=== PATIENT | female | born 1940 | race Caucasian/White ===

== ENCOUNTER 2024-03-08 09:24 | Day surgery (SDC) | payer MEDICARE, SELFPAY ==
[2024-03-07 09:42] VITALS: BMI 19.1
[2024-03-08 09:48] VITALS: BP 153/73; PULSE 65; RESP 16; TEMP 36.4; O2SAT 100
[2024-03-08] MEDS: LACTATED RINGERS 1000ML 1,000 ML 25 ML IV (09:55)
--- NOTE | 2024-03-08 10:07 | EXP.ANES.CKL ---
[facility] Disclaimer: The information contained in this section may have been updated after the patient was seen, as this information can be updated by other users. Medical History History of hypothyroidism Hypertension History of arthritis Dysphagia Surgical History History of esophagogastroduodenoscopy (EGD) Family History Other No significant family history Social History Smoking Status: Never smoker alcohol intake: never substance use type: denies use current occupational status: retired Travel in the last 8 weeks: None [facility] Anesthesia Checklist Patient Identification Patient Identification: Arm Band Structural Data Admitted From: Home Planned Operative Procedure/s: EGD Consent for Planned Operative Procedure(s) Verified: Yes Verified Documents: Surgical Consent and History and Physical NPO Status Verified Time NPO: 00:00 Additional verifications Anesthesia Reactions: No Airway Assessment Mallampati Score:: Class II C-Spine Mobility Assessed: Yes TMJ Mobility Assessed: Yes Dentition: Edentulous Neurological Assessment Level of Consciousness: Awake, Alert and Appropriate Anesthesia Plan Anesthesia Risk discussed: Yes Anesthesia Plan: Verified ASA Class: II Anesthesia Type: MAC
--- NOTE | 2024-03-08 10:29 | EXP.HP ---
History of Present Illness *Admission Date: 03/08/24 *Reason for visit:: Dysphagia *History of present illness: Mrs. Redd is an 83-year-old female who is here for recurrent dysphagia. She has had multiple esophageal dilations over the years. The examination is deemed medically necessary for EGD. The patient has been seen, interviewed and examined prior to the procedure by both myself and the anesthesia provider. [facility] Disclaimer: The information contained in this section may have been updated after the patient was seen, as this information can be updated by other users. Medical History History of hypothyroidism Hypertension History of arthritis Dysphagia Surgical History History of esophagogastroduodenoscopy (EGD) Family History Other No significant family history Social History (Updated 03/08/24 @ 10:08 by Ramsey Holland CRNA) Smoking Status: Never smoker alcohol intake: never substance use type: denies use current occupational status: retired Travel in the last 8 weeks: None Other Medical History Have you received the Pneumonia Vaccine: No Review of Systems Review of Systems Review of systems (narrative): Negative *Cardiovascular Comments: Negative *Gastrointestinal Comments: Negative *Genitourinary Comments: Negative *Musculoskeletal Comments: Negative *Neurologic Comments: Negative Meds Home Medications and Allergies Home Medications ?Medication ?Instructions ?Recorded ?Confirmed ?Type acetaminophen 500 mg tablet (Pain 500 mg PO Q6H PRN Pain 03/01/24 03/08/24 History Relief Extra Strength (acetaminophen)) levothyroxine 50 mcg tablet 50 mcg PO DAILY 03/01/24 03/08/24 History losartan 100 mg tablet 100 mg PO DAILY 03/01/24 03/08/24 History meclizine 12.5 mg tablet 12.5 mg PO TID PRN Nausea 03/01/24 03/08/24 History psyllium husk (with sugar) 3 1 tbsp PO DAILY PRN Constipation 03/01/24 03/08/24 History gram/12 gram oral powder (Konsyl (sugar)) New Prescriptions to Start Prescriptions: Allergies Allergy/AdvReac Type Severity Reaction Status Date / Time No Known Allergies Allergy Verified 03/08/24 09:47 Exam Data for Last 24 hours Vital signs and Labs for Last 24 Hours: Temp Pulse Resp BP Pulse Ox O2 Del Method 97.6 F 65 16 153/73 H 100 Room Air 03/08/24 09:48 03/08/24 09:48 03/08/24 09:48 03/08/24 09:48 03/08/24 09:48 03/08/24 09:48 I & O for Last 24 hours: Intake & Output 03/05/24 03/06/24 03/07/24 03/08/24 23:59 23:59 23:59 23:59 Weight 115 lb *Routine HEENT Exam Head: Present normocephalic Eye: Present EOMI and PERRL ENT: Present mucous membranes moist *Routine Neck Exam Neck: Present supple *Routine Respiratory Exam Respiratory: Present CTA bilaterally *Routine Cardiovascular Exam Cardiovascular: Present RRR *Routine Abdominal Exam Abdominal: Present soft and normoactive bowel sounds; Absent tenderness *Routine Rectal Exam Rectal:: deferred *Routine Genitalia Exam Genitalia:: deferred *Routine Extremities Exam Extremities: Absent cyanosis, clubbing or edema *Routine Skin Exam Skin: Present warm; Absent rash *Routine Neurological Exam Neurological: Present alert and oriented X3 Assessment and Plan *Assessment and plan (1) Dysphagia: Status: Acute Category: Medical Code(s): R13.10 - Dysphagia, unspecified Plan A/P: 1. Dysphagia is the preprocedural diagnosis. The patient will be anesthetized/sedated using MAC sedation. The patient has been seen and examined. Cardiac and lung assessment prior to the examination is stable. Proceed with planned EGD
[2024-03-08 10:34] VITALS: O2SAT 99
--- NOTE | 2024-03-08 10:42 | P.PCN_ITS ---
[facility] Procedure Note Date: 03/08/24 Procedure Note:: Upper Endoscopy Procedure Report: Esophagogastroduodenoscopy with cold biopsies and TTS balloon dilation Endoscopost: Geovanni Lao II, MD Referring Physician: Cesar Flowers MD Date of Procedure: March 08, 2024 Equipment: Olympus GIF 190 standard upper endoscope Sedation: MAC sedation Indications: Mrs. Redd is an 83-year-old female who is here for diagnostic/therapeutic upper endoscopy secondary to recurrent dysphagia. The patient has had 4-5 prior upper endoscopies with dilation. She recently has had an increase in her swallowing difficulty since October. She does state that breads and meats are getting hung up on a regular basis. The patient also has had some constipation. Procedure: Prior to the procedure, a history and physical exam was performed, and patient's medications and allergies were reviewed. The risks, benefits and alternatives of the sedation and procedure were discussed with the patient. All questions were answered and informed consent was obtained. The patient was brought to the procedure room. Patient identification and proposed procedure were verified by the physician and the nurse. The patient was placed in a left lateral decubitus position and the scope was passed under direct vision. Throughout the procedure, the patient's blood pressure, pulse, and oxygen saturations were monitored continuously. The upper GI endoscopy was accomplished without difficulty. The patient tolerated the procedure well. Findings: The scope was passed directly into the upper esophagus and advanced to the third portion of the duodenum. The post bulbar duodenum and duodenal bulb were normal with normal mucosa and conniventes. The scope was withdrawn through a normal duodenal bulb and pylorus into the stomach. The antrum was normal. There was mild atrophy of the body and fundus. Upon retroflexion within the stomach there was a 2 cm small hiatal hernia. The scope was then withdrawn into the esophagus. There was a distal esophageal ring that was an original diameter 5 to 6 mm. This was dilated up to 20 mm with a TTS hydrostatic balloon. There was no corrugation or furrowing. Biopsies were taken from the midesophagus to rule out eosinophilic esophagitis. There was no evidence of reflux esophagitis or Solorio's. There were tertiary contractions and moderate esophageal dysmotility. The entire esophagus was dilated to 20 mm. The remainder of the esophageal mucosa was normal. Impression: 1. Distal Schatzki's ring with original diameter 5 to 6 mm (smaller than endoscope) and dilated up to 20 mm with TTS hydrostatic balloon 2. Nonerosive GERD with small hiatal hernia and moderate esophageal dysmotility Plan: The patient should have clinical improvement with dilation. I would again recommend omeprazole for 3 months post dilation. I will discuss the findings with the patient and family. A Schatzki's ring is a fibrous shelf of tissue in the lower esophagus where mostly solid foods can get hung up. I did stretch/dilate this maximally to improve her swallowing. These do have a pre dilection to recur after a couple of years and this may need to be redilated at some point in the future.
[2024-03-08 10:58] VITALS: BP 116/64; PULSE 83; RESP 18; TEMP 36.9; O2SAT 96
[2024-03-08 11:08] VITALS: BP 105/69; PULSE 84; RESP 18; O2SAT 96
[2024-03-08 11:18] VITALS: BP 128/69; PULSE 82; RESP 18; O2SAT 96
[2024-03-08 11:28] VITALS: BP 117/72; PULSE 72; RESP 18; O2SAT 96
== END 2024-03-08 11:28 | disposition home or self-care (01) ==
PROVIDERS: PCP Family Medicine; Visit Provider Internal Medicine Gastroenterology
PROC: 0DJ08ZZ Inspection of Upper Intestinal Tract, Via Natural or Artificial Opening Endoscopic (ICD-10-PCS; CPT 43235; principal; 2024-03-08 11:00)
DX: R13.10 Dysphagia, unspecified (principal); K59.00 Constipation, unspecified; K29.40 Chronic atrophic gastritis without bleeding; K44.9 Diaphragmatic hernia without obstruction or gangrene; K22.2 Esophageal obstruction; K22.4 Dyskinesia of esophagus; K21.9 Gastro-esophageal reflux disease without esophagitis
CPT/HCPCS: 43239; 43249; 88305; C1726; J7120

== ENCOUNTER 2025-03-01 09:41 | Day surgery (SDC) | payer MEDICARE, SELFPAY ==
--- NOTE | 2025-02-27 07:45 | EXP.HP ---
History of Present Illness *Admission Date: 03/01/25 *History of present illness: Mrs. Redd is an 84-year-old female who is here for diagnostic/therapeutic upper endoscopy. She has a prior history of a distal esophageal stricture/Schatzki's ring that has been dilated multiple times. Her last EGD with dilation was in February 2024. At that time, the initial diameter of the ring was 5 to 6 mm and this was dilated to 20 mm with a TTS hydrostatic balloon. She has had recurrent dysphagia. The examination is deemed medically necessary for diagnostic/therapeutic upper endoscopy. The patient has been seen, interviewed and examined prior to the procedure by both myself and the anesthesia provider. [facility] Disclaimer: The information contained in this section may have been updated after the patient was seen, as this information can be updated by other users. Medical History History of hypothyroidism Hypertension History of arthritis Dysphagia Surgical History History of esophagogastroduodenoscopy (EGD) Family History Other No significant family history Social History Smoking Status: Never smoker alcohol intake: never substance use type: denies use current occupational status: retired Travel in the last 8 weeks?: None Have you lived/traveled outside US in past 30 days?: No Contact w/someone who lives/traveled outside US past 30 days?: No Exposure to someone with infectious disease in past 14 days?: No Do you have a fever (greater than 100.4 F or 38 C)?: No Have you tested positive for COVID-19?: No Exposed to someone with COVID-19 in past 14 days?: No Do you have a sore throat?: No Do you have a cough?: No Do you have any weakness?: No Do you have any diarrhea?: No Are you experiencing any unusual bleeding?: No Do you have any muscle aches/pain?: No Do you have any abdominal pain?: No Are you experiencing loss of taste or smell?: No Other Medical History Have you received the Pneumonia Vaccine: No Review of Systems Review of Systems Review of systems (narrative): Negative *Cardiovascular Comments: Negative *Gastrointestinal Comments: Negative *Genitourinary Comments: Negative *Musculoskeletal Comments: Negative *Neurologic Comments: Negative Meds Home Medications and Allergies Home Medications ?Medication ?Instructions ?Recorded ?Confirmed ?Type acetaminophen 500 mg tablet (Pain 500 mg PO Q6H PRN Pain 03/01/24 02/28/25 History Relief Extra Strength (acetaminophen)) levothyroxine 50 mcg tablet 50 mcg PO DAILY 03/01/24 02/28/25 History losartan 100 mg tablet 100 mg PO DAILY 03/01/24 02/28/25 History meclizine 12.5 mg tablet 12.5 mg PO TID PRN Nausea 03/01/24 02/28/25 History psyllium husk (with sugar) 3 1 tbsp PO DAILY PRN Constipation 03/01/24 02/28/25 History gram/12 gram oral powder (Konsyl (sugar)) New Prescriptions to Start Prescriptions: Allergies Allergy/AdvReac Type Severity Reaction Status Date / Time No Known Allergies Allergy Verified 02/28/25 14:28 Exam *Routine HEENT Exam Head: Present normocephalic Eye: Present EOMI and PERRL ENT: Present mucous membranes moist *Routine Neck Exam Neck: Present supple *Routine Respiratory Exam Respiratory: Present CTA bilaterally *Routine Cardiovascular Exam Cardiovascular: Present RRR *Routine Abdominal Exam Abdominal: Present soft and normoactive bowel sounds; Absent tenderness *Routine Rectal Exam Rectal:: deferred *Routine Genitalia Exam Genitalia:: deferred *Routine Extremities Exam Extremities: Absent cyanosis, clubbing or edema *Routine Skin Exam Skin: Present warm; Absent rash *Routine Neurological Exam Neurological: Present alert and oriented X3 Assessment and Plan *Assessment and plan (1) History of esophageal stricture: Status: Acute Category: Medical Code(s): Z87.19 - Personal history of other diseases of the digestive system (2) Schatzki's ring: Status: Acute Category: Medical Code(s): K22.2 - Esophageal obstruction (3) Dysphagia: Status: Acute Category: Medical Code(s): R13.10 - Dysphagia, unspecified Plan A/P: 1. History of esophageal stricture/Schatzki's ring with recurrent dysphagia is the preprocedural diagnosis. The patient will be anesthetized/sedated using MAC sedation. The patient has been seen and examined. Cardiac and lung assessment prior to the examination is stable. Proceed with planned diagnostic/therapeutic EGD.
[2025-02-28 14:31] VITALS: BMI 18.6
--- NOTE | 2025-03-01 06:57 | HMH.PROCNOTE ---
[facility] Procedure Note Date: 03/01/25 Time: 12:30 Procedure Note:: Upper Endoscopy Procedure Report: Esophagogastroduodenoscopy with TTS balloon dilation Endoscopost: Geovanni Lao II, MD Referring Physician: Cesar Flowers MD Date of Procedure: March 01, 2025 Equipment: Olympus GIF-1100 standard upper endoscope Sedation: MAC sedation Indications: Mrs. Redd is an 84-year-old female who is here for diagnostic/therapeutic upper endoscopy. She has a prior history of a distal esophageal stricture/Schatzki's ring that has been dilated multiple times. Her last EGD with dilation was in February 2024. At that time, the initial diameter of the ring was 5 to 6 mm and this was dilated to 20 mm with a TTS hydrostatic balloon. She has had recurrent dysphagia but she does state that this is not as bad as it has been in the past. She has had to regurgitate food at times and did have a more significant food impaction a couple of months ago where she had to regurgitate. She reports no heartburn, reflux or chest pain. The examination is deemed medically necessary for diagnostic/therapeutic upper endoscopy. Procedure: Prior to the procedure, a history and physical exam was performed, and patient's medications and allergies were reviewed. The risks, benefits and alternatives of the sedation and procedure were discussed with the patient. All questions were answered and informed consent was obtained. The patient was brought to the procedure room. Patient identification and proposed procedure were verified by the physician and the nurse. The patient was placed in a left lateral decubitus position and the scope was passed under direct vision. Throughout the procedure, the patient's blood pressure, pulse, and oxygen saturations were monitored continuously. The upper GI endoscopy was accomplished without difficulty. The patient tolerated the procedure well. Findings: The scope was passed directly into the upper esophagus and advanced to the third portion of the duodenum. The post bulbar duodenum and duodenal bulb were normal with normal mucosa and conniventes. The scope was withdrawn through a normal duodenal bulb and pylorus into the stomach. There was mild linear antral gastropathy. The body and fundus of the stomach were normal. Upon retroflexion there was a very small sliding hiatal hernia. The scope was then withdrawn into the esophagus. There was a distal fibrotic ring. Initially, this was 6 mm in diameter. This was dilated to 20 mm with a TTS hydrostatic balloon. There was no evidence of reflux esophagitis or Solorio's. The entire esophagus was dilated to 20 mm. The remainder of the esophageal mucosa was normal. Impression: 1. Distal esophageal fibrotic ring (originally 6 mm diameter) dilated to 20 mm diameter Plan: I will discuss the findings with the patient and family. She should have clinical improvement with dilation.
[2025-03-01 10:42] VITALS: BP 159/75; PULSE 70; RESP 18; TEMP 36.8; O2SAT 98
[2025-03-01] MEDS: LACTATED RINGERS 1000ML 1,000 ML 50 ML IV (11:01)
--- NOTE | 2025-03-01 12:12 | P.PNANES_ITS ---
[facility] Disclaimer: The information contained in this section may have been updated after the patient was seen, as this information can be updated by other users. Medical History History of hypothyroidism Hypertension History of arthritis Dysphagia Surgical History History of esophagogastroduodenoscopy (EGD) Family History Other No significant family history Social History Smoking Status: Never smoker alcohol intake: never substance use type: denies use current occupational status: retired Travel in the last 8 weeks?: None Have you lived/traveled outside US in past 30 days?: No Contact w/someone who lives/traveled outside US past 30 days?: No Exposure to someone with infectious disease in past 14 days?: No Do you have a fever (greater than 100.4 F or 38 C)?: No Have you tested positive for COVID-19?: No Exposed to someone with COVID-19 in past 14 days?: No Do you have a sore throat?: No Do you have a cough?: No Do you have any weakness?: No Do you have any diarrhea?: No Are you experiencing any unusual bleeding?: No Do you have any muscle aches/pain?: No Do you have any abdominal pain?: No Are you experiencing loss of taste or smell?: No [facility] Anesthesia Checklist Patient Identification Patient Identification: Verbal (Name & ) Structural Data Admitted From: Home Planned Operative Procedure/s: egd Consent for Planned Operative Procedure(s) Verified: Yes NPO Status Verified Time NPO: 00:00 Additional verifications Anesthesia Reactions: No Airway Assessment Mallampati Score:: Class II C-Spine Mobility Assessed: Yes TMJ Mobility Assessed: Yes Dentition: Dentures-good fit Neurological Assessment Level of Consciousness: Awake, Alert and Appropriate Anesthesia Plan Anesthesia Risk discussed: Yes Anesthesia Plan: Verified ASA Class: II Anesthesia Type: MAC
[2025-03-01 12:30] VITALS: BP 132/57; PULSE 70; RESP 14; TEMP 36.1; O2SAT 97
[2025-03-01 12:40] VITALS: PULSE 74; RESP 18; O2SAT 93
[2025-03-01 12:50] VITALS: BP 144/78; PULSE 71; RESP 18; O2SAT 97
[2025-03-01 13:00] VITALS: BP 158/69; PULSE 69; RESP 18; O2SAT 97
== END 2025-03-01 13:10 | disposition home or self-care (01) ==
PROVIDERS: PCP Family Medicine; Visit Provider Internal Medicine Gastroenterology
PROC: 0DJ08ZZ Inspection of Upper Intestinal Tract, Via Natural or Artificial Opening Endoscopic (ICD-10-PCS; CPT 43249; principal; 2025-03-01 11:30)
DX: K44.9 Diaphragmatic hernia without obstruction or gangrene (principal); K31.89 Other diseases of stomach and duodenum; K22.2 Esophageal obstruction; I10 Essential (primary) hypertension; E03.9 Hypothyroidism, unspecified; M19.90 Unspecified osteoarthritis, unspecified site; Z87.19 Personal history of other diseases of the digestive system
CPT/HCPCS: 43249; C1726; J2003; J2704; J7120